=== PATIENT | female | born 2000 | race Caucasian/White ===

== ENCOUNTER 2022-08-02 16:40 | Emergency (ER) | payer MEDICAID, SELFPAY ==
[2022-08-02 16:41] VITALS: BP 118/88; PULSE 118; RESP 14; TEMP 36.6; O2SAT 96; BMI 25.3
[2022-08-02 17:57] LABS: Mucous, Urine 0 SEEN /hpf (<or=2+)
[2022-08-02 18:12] LABS: Absolute Lymphocyte Count 1.84 X10^3/uL (0.83-4.51); Absolute Neutrophil Count 11.1 X10^3/uL (2.0-7.7); Basophil# 0.03 X10^3/uL; Basophil% 0.2 % (0-1); Eosinophil# 0.04 X10^3/uL; Eosinophils% 0.3 % (0-5); Hematocrit 38.3 % (37-47); Hemoglobin 12.7 g/dL (12.0-15.0); Lymphocyte # 1.84 X10^3/ul (0.83-4.51); Mean Corp Hgb Conc 33.2 g/dL (32-36); Mean Corpuscular Hgb 27.8 pg (27.0-32.0); Mean Corpuscular Volume 83.8 fL (81-99); Mean Platelet Vol. 11.8 fl (6.2-12.0); Monocyte# 1.14 X10^3/uL; NRBC Flagged by Analyzer 0 % (0-5); Neutrophil # 11.09 X10^3/uL (2.7-7.7); Neutrophil % 78.1 % (47-70); Platelet Count 148 K/mm3 (150-450); RBC Distribution Width CV 13.3 % (11.6-14.6); RBC Distribution Width SD 40.4 fl (35.1-43.9); Red Blood Count 4.57 M/mm3 (4.2-5.4); White Blood Count 14.2 K/mm3 (4.4-11.0)
[2022-08-02 18:13] LABS: Color, Urine Yellow (Yellow); Glucose, Dipstick Normal (Normal); Ketone-Dipstick 15 mg/dl (Negative); Leukocyte Esterase-Dipstick 100 /ul (Negative); Nitrite-Dipstick Negative (Negative); Occult Blood-Urine 50 /ul (Negative); Protein-Dipstick 30 mg/dl (Negative); Urine Clarity Sl. Cloudy (Clear); Urine Urobilinogen 1 mg/dl (Normal)
[2022-08-02 18:18] LABS: Urine Bilirubin Dipstick 1 mg/dL (Negative)
[2022-08-02 18:19] LABS: Squamous Epithelial Cells - UA 5-10 SEEN /hpf (5-10)
[2022-08-02 18:20] LABS: Bacteria 1+ /hpf (None Seen); Red Blood Cells-Urine 0-5 SEEN /hpf (0-5); White Blood Cells 10-25 SEEN /hpf (0-5)
[2022-08-02 18:22] LABS: Internal QC Validated? YES +Cl - CLEAR BKGD; Pregnancy, Serum, hCG Quali. NEGATIVE Negative
[2022-08-02 18:25] LABS: Anion Gap 7 (5-15); BUN 16 mg/dL (7-18); BUN/Creat Ratio 16.3 RATIO (10-20); Calcium,Total 9.8 mg/dL (8.5-10.1); Chloride 104 mmol/L (98-107); Creatinine, Serum 0.98 mg/dL (0.55-1.02); EST Glomerular Filtration Rate 74 mL/min (>60); Est Glom Filt Rate - Afr Amer 89 mL/min (>60); Glucose 108 mg/dL (74-106); Potassium 3.6 mmol/L (3.5-5.1); Sodium Level 139 mmol/L (136-145)
--- NOTE | 2022-08-02 18:51 | US_ITS ---
EXAM: US PELVIS TRANSVAGINAL CLINICAL INDICATION: right adnexal pain, H/O ovarian cysts TECHNIQUE: Transvaginal pelvic ultrasound was performed with grayscale and color Doppler imaging. Transvaginal imaging was used for better evaluation of the endometrium and adnexa. This report was created using [employer] report MOGL technology. COMPARISON: None. FINDINGS: UTERUS/CERVIX: The uterus is normal in size and echogenicity measuring 8.3 x 3 x 6.[address] Visualized endometrium is normal measuring 2 mm. There is no uterine mass. RIGHT OVARY: Right ovary measures 3.3 x 1.8 x 2.7 cm. Dominant follicle measures 1.3 cm, within normal limits. Blood flow is present in the right ovary. LEFT OVARY: Left ovary is normal in size and echogenicity measuring 3.8 x 1.5 x 2.4 cm. No mass or dominant cyst. Blood flow is present in the left ovary. FREE FLUID: None. US/Transvaginal Non- IMPRESSION: 1. No acute findings. 2. IUD in [address]. Electronically Signed: Sisi Perales MD at 20:00 EST Reading Location ID and State: [id number] / Tel , Service support ,
--- NOTE | 2022-08-02 18:53 | EDS_ITS ---
HPI History of Present Illness Chief Complaint: Abd Pain Informant: patient Onset/Context/Timing Onset: Days Context: Gradual Onset Timing: Waxes and wanes Current Severity: Moderate Maximum Severity: Moderate Narrative Narrative: Patient presents secondary to fever with abdominal pain and now sore throat. Patient states that yesterday had a fever up to 103. She has been noticing some lower abdominal pain in the suprapubic and right lower quadrant area. She has already had an appendectomy. She does have an IUD in place, but was concerned about possible ectopic as she had a family member who got with the same IUD. She also has a history of ovarian cysts and has required surgery for these in the past. Today she noted a sore throat with enlarged tonsils. She has had no congestion, cough, shortness of breath. [facility] Medical History (Updated 08/02/22 @ 20:[address] Lisandra Burris MD) Ovarian cyst Home Medications cephalexin 500 mg capsule 500 mg PO Q12 #20 CAPSULES 08/02/22 [Rx Last Taken Unknown] citalopram 20 mg tablet 20 mg PO DAILY 08/02/22 [History Last Taken Unknown] Allergy/AdvReac Type Severity Reaction Status Date / Time dicyclomine [From Bentyl] Allergy Hives Verified 08/02/22 16:44 raspberry Allergy Swelling Verified 08/02/22 16:44 shellfish derived Allergy Swelling Verified 08/02/22 16:44 Surgical History H/O ovarian cystectomy Hx of appendectomy Social History Smoking Status: Light Smoker (<10/day) ROS ROS ED Constitutional Constitutional ED: Reports fever(s); Denies chills Eyes Eyes: Denies change in vision or discharge from eye(s) ENT ENT ED: Reports sore throat; Denies discharge from eye(s) or rhinorrhea Cardiovascular Cardiovascular: Denies chest pain or palpitations Respiratory/Chest Respiratory/Chest: Denies cough or dyspnea Gastrointestinal Gastrointestinal: Reports abdominal pain; Denies diarrhea, nausea or vomiting Genitourinary Genitourinary ED: Reports dysuria and urinary frequency; Denies difficulty urinating Musculoskeletal Musculoskeletal: Denies back pain or extremity pain Integumentary Denies Abrasions or rash Neurologic Neurologic: Denies headache(s) or weakness Psychiatric Psychiatric: Denies anxiety or depression Allergic/Immunologic Allergic/Immunologic ED: Denies lip swelling or urticaria EXAM Physical Exam Const Vital Signs: 08/02/22 16:41 Temperature 97.8 F Temperature Source Temporal Pulse Rate 118 H Respiratory Rate 14 Blood Pressure 118/88 H Blood Pressure Mean 98 Pulse Ox 96 Oxygen Delivery Method Room Air Positive well nourished and well developed General Appearance ED: well developed HEENT Reports normocephalic and head/scalp atraumatic HEENT Narrative: 3+ tonsils bilaterally with exudate. Uvula midline. Patient tolerating secretions well and has a strong voice. Eyes PERRL and EOMs intact bilaterally Neck supple Chest Wall inspection of chest normal and palpation of chest normal Resp normal respiratory effort and clear to auscultation bilaterally Cardio regular rate and regular rhythm GI GI Narrative: Suprapubic tenderness to palpation. No guarding or rebound. Palpation: soft Extremity normal to inspection Neuro oriented x3 and no sensory deficits noted Sensorium / Orientation: alert Motor Exam: strength 5/5 throughout Psych mental status grossly normal Skin no rashes or lesions noted MDM MDM MDM Narrative Medical decision making narrative: Lab work and urinalysis initiated from triage. At the time of my exam I added a pelvic ultrasound to evaluate for possible ovarian cyst given her right adnexal pain. Rapid strep was also obtained. Patient was given Toradol and IV fluids. Lab Data Attestation: I reviewed the patient's lab results. Labs: Laboratory Results - last 24 hr 08/02/22 08/02/22 08/02/22 17:05 17:43 17:43 WBC 14.2 H RBC 4.57 Hgb 12.7 Hct 38.3 MCV 83.8 MCH 27.8 MCHC 33.2 RDW Std Deviation 40.4 RDW Coeff of Indigo 13.3 Plt Count 148 L MPV 11.8 Immature Gran % (Auto) 0.400 Neut % (Auto) 78.1 H Lymph % (Auto) 13.0 L Luce % (Auto) 8.0 Eos % (Auto) 0.3 Baso % (Auto) 0.2 Absolute Neuts (auto) 11.1 H Absolute Lymphs (auto) 1.84 Nucleated RBC % 0 Sodium 139 Potassium 3.6 Chloride 104 Carbon Dioxide 28.0 Anion Gap 7 BUN 16 Creatinine 0.98 Estim Creat Clear Calc 66.80 Est GFR (MDRD) Af Amer 89 Est GFR (MDRD) Non-Af 74 BUN/Creatinine Ratio 16.3 Glucose 108 H Calcium 9.8 Serum , Qual Urine Color Yellow Urine Clarity Sl. Cloudy Urine pH 5.0 Ur Specific [place] 1.020 Urine Protein 30 H Urine Glucose (UA) Normal Urine Ketones 15 H Urine Occult Blood 50 H Urine Nitrite Negative Urine Bilirubin 1 H Urine Urobilinogen 1 H Ur Leukocyte Esterase 100 H Urine RBC 0-5 SEEN Urine WBC 10-25 SEEN Ur Squamous Epith Cells 5-10 SEEN Urine Bacteria 1+ Urine Mucus 0 SEEN 08/02/22 17:43 WBC RBC Hgb Hct MCV MCH MCHC RDW Std Deviation RDW Coeff of [place]igo Plt Count MPV Immature Gran % (Auto) Neut % (Auto) Lymph % (Auto) Luce % (Auto) Eos % (Auto) Baso % (Auto) Absolute Neuts (auto) Absolute Lymphs (auto) Nucleated RBC % Sodium Potassium Chloride Carbon Dioxide Anion Gap BUN Creatinine Estim Creat Clear Calc Est GFR (MDRD) Af Amer Est GFR (MDRD) Non-Af BUN/Creatinine Ratio Glucose Calcium Serum , Qual NEGATIVE Urine Color Urine Clarity Urine pH Ur Specific [place] Urine Protein Urine Glucose (UA) Urine Ketones Urine Occult Blood Urine Nitrite Urine Bilirubin Urine Urobilinogen Ur Leukocyte Esterase Urine RBC Urine WBC Ur Squamous Epith Cells Urine Bacteria Urine Mucus Radiography Diagnostic Testing: Clinical Impression(s) from Imaging Studies Transvaginal US 08/02/22 18:51 IMPRESSION: 1. No acute findings. 2. IUD in place. Electronically Signed: Sisi Perales MD at 20:00 EST Reading Location ID and State: [id number] / Tel , Service support , Treatment and Re-Evaluation :: CBC reveals a white count of 14.2 with 78% neutrophils. Chemistries unremarkable. Urinalysis reveals 10-25 white blood cells with 1+ bacteria, however 5-10 epithelial cells are also noted. Negative nitrites. test is negative. Strep swab returns positive for strep A. Pelvic ultrasound reveals normal bilateral ovaries with good blood flow. No ovarian cyst noted at this time. Test results discussed with the patient. Given that she is having suprapubic pain and dysuria we will treat her urine as well as her strep throat. I will treat her with Keflex twice a day for 10 days. I did not send a urine culture as there are epithelial cells in her sample and I do not feel we would get a clean culture. Discharge Plan Triage Chief Complaint: Abd Pain ED Provider: Lisandra Burris Dx/Rx/DC Orders Clinical Impression: Strep pharyngitis, UTI (urinary tract infection) Instructions: ED Pharyngitis, Strep (Confirmed), ED Cystitis Female Adult Prescriptions: New cephalexin 500 mg capsule 500 mg PO Q12 Qty: 20 0RF No Action citalopram 20 mg tablet 20 mg PO DAILY Primary Care Provider: Lisandra Brower Referrals: Lisandra Brower DO [Primary Care Provider] - 1-2 Weeks Disposition Disposition: Home, Self Care
[2022-08-02] MEDS: Ketorolac 30 MG/ML Syringe IV (18:59)
[2022-08-02] MEDS: 0.9% Normal Saline 1,000 ML 1000 ML IV (18:59)
[2022-08-02] MEDS: Cephalexin 250 MG Capsule 500 MG PO (20:40)
[2022-08-02 20:42] VITALS: BP 112/78; PULSE 74; RESP 16; O2SAT 98
== END 2022-08-02 20:44 | disposition home or self-care (01) ==
PROVIDERS: Emergency Provider Emergency Medicine; PCP Family Medicine; Visit Provider Emergency Medicine
DX: J02.0 Streptococcal pharyngitis (principal); N39.0 Urinary tract infection, site not specified; F17.200 Nicotine dependence, unspecified, uncomplicated; Z79.899 Other long term (current) drug therapy
CPT/HCPCS: 76830; 80048; 81001; 84703; 85025; 87880; 93976; 96361; 96374; 99283; J7030; A4216

== ENCOUNTER 2022-08-17 16:35 | Emergency (ER) | payer MEDICAID, SELFPAY ==
[2022-08-17 16:36] VITALS: BP 124/77; PULSE 95; RESP 18; TEMP 36.3; O2SAT 99
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
[2022-08-17 17:54] VITALS: BMI 25.7
[2022-08-17 17:57] VITALS: BP 109/82; BP 115/84; PULSE 70; PULSE 75
[2022-08-17 18:03] VITALS: BP 117/90; PULSE 74; O2SAT 100
[2022-08-17 18:17] LABS: Absolute Lymphocyte Count 2.13 X10^3/uL (0.83-4.51); Basophil# 0.03 X10^3/uL; Basophil% 0.4 % (0-1); Eosinophil# 0.16 X10^3/uL; Eosinophils% 2.3 % (0-5); Hematocrit 38.4 % (37-47); Hemoglobin 12.3 g/dL (12.0-15.0); Lymphocyte # 2.13 X10^3/ul (0.83-4.51); Lymphocyte % 30.9 % (19-41); Mean Corpuscular Hgb 27.3 pg (27.0-32.0); Mean Corpuscular Volume 85.3 fL (81-99); Monocyte# 0.56 X10^3/uL; Monocyte% 8.1 % (0-10); NRBC Flagged by Analyzer 0 % (0-5); Neutrophil # 3.99 X10^3/uL (2.7-7.7); Platelet Count 239 K/mm3 (150-450); RBC Distribution Width CV 13.2 % (11.6-14.6); RBC Distribution Width SD 41.3 fl (35.1-43.9); White Blood Count 6.9 K/mm3 (4.4-11.0)
[2022-08-17 18:29] LABS: Anion Gap 5 (5-15); BUN 18 mg/dL (7-18); BUN/Creat Ratio 22.8 RATIO (10-20); Calcium,Total 9.4 mg/dL (8.5-10.1); Chloride 105 mmol/L (98-107); Creatinine, Serum 0.79 mg/dL (0.55-1.02); EST Glomerular Filtration Rate 95 mL/min (>60); Est Glom Filt Rate - Afr Amer 115 mL/min (>60); Estimated Creatinine Clearance 82.86 ml/min; Glucose 95 mg/dL (74-106); Potassium 4.1 mmol/L (3.5-5.1); Sodium Level 138 mmol/L (136-145)
[2022-08-17] MEDS: 0.9% Normal Saline 1,000 ML 150 ML IV (18:42)
[2022-08-17] MEDS: LORazepam 2 MG/ML Syringe 1 MG IV (18:42)
[2022-08-17] MEDS: 0.9% Normal Saline 1,000 ML 1000 ML IV (18:42)
[2022-08-17 18:46] LABS: Color, Urine Yellow (Yellow); Glucose, Dipstick Normal (Normal); Ketone-Dipstick Negative (Negative); Leukocyte Esterase-Dipstick 100 /ul (Negative); Mucous, Urine 0 SEEN /hpf (<or=2+); Nitrite-Dipstick Negative (Negative); Occult Blood-Urine Negative /ul (Negative); Protein-Dipstick 15 mg/dl (Negative); Red Blood Cells-Urine 0 SEEN /hpf (0-5); Urine Bilirubin Dipstick Negative (Negative); Urine Clarity Sl. Cloudy (Clear); Urine Urobilinogen Normal (Normal)
[2022-08-17 18:47] LABS: Internal QC Validated? YES +Cl - CLEAR BKGD; Pregnancy, Serum, hCG Quali. NEGATIVE Negative
[2022-08-17 18:49] LABS: Bacteria 1+ /hpf (None Seen); Squamous Epithelial Cells - UA 0-5 SEEN /hpf (5-10); White Blood Cells 0-5 SEEN /hpf (0-5)
[2022-08-17 20:01] VITALS: BP 110/68; O2SAT 99
== END 2022-08-17 21:21 | disposition home or self-care (01) ==
PROVIDERS: Emergency Provider Emergency Medicine; PCP Family Medicine; Visit Provider Emergency Medicine
DX: R55 Syncope and collapse (principal); F41.9 Anxiety disorder, unspecified; F17.200 Nicotine dependence, unspecified, uncomplicated; Z79.899 Other long term (current) drug therapy
CPT/HCPCS: 80048; 81001; 84703; 85025; 93005; 96361; 96374; 99283; J7030; A4216

== ENCOUNTER 2023-09-22 19:11 | Emergency (ER) | payer MEDICAID, SELFPAY ==
[2023-09-22 19:13] VITALS: BP 121/80; PULSE 93; RESP 18; TEMP 36.1; O2SAT 98; BMI 29.5
[2023-09-22 19:37] LABS: Red Blood Cells-Urine 0 SEEN /hpf (0-5)
[2023-09-22 19:39] LABS: Color, Urine Yellow (Yellow); Glucose, Dipstick Normal (Normal); Ketone-Dipstick Negative (Negative); Leukocyte Esterase-Dipstick 25 /ul (Negative); Nitrite-Dipstick Negative (Negative); Occult Blood-Urine Negative /ul (Negative); Protein-Dipstick Negative (Negative); Urine Bilirubin Dipstick Negative (Negative); Urine Clarity Sl. Cloudy (Clear); Urine Urobilinogen Normal (Normal)
--- NOTE | 2023-09-22 19:39 | US_ITS ---
EXAM: US , TRANSVAGINAL CLINICAL INDICATION: bleeding, cramping TECHNIQUE: Real-time transvaginal obstetrical ultrasound of the maternal pelvis and a first trimester with image documentation. Transvaginal imaging was used for better evaluation of the fetus and adnexa. COMPARISON: No relevant prior studies available. FINDINGS: GESTATION: There is an intrauterine gestational sac with a mean sac diameter of 1.8 cm age of 6 weeks 5 days. There is a pole crown-rump length of 9 mm age 7 weeks 0 days. heart rate is 126 bpm. PLACENTA/AMNIOTIC FLUID: There is a 9 x 6 mm hypoechoic area adjacent to gestational sac which may represent a subchorionic hemorrhage. UTERUS/CERVIX: The uterus measures 8.2 x 4.9 x 6.5 cm. No myometrial mass. OVARIES: The left ovary measures 4.3 x 2.2 x 3.1 cm. There is a 2.2 x 2.4 x 2.4 cm complex cyst in the left ovary. The right ovary measures 3.3 x 1.1 x 1.9 cm. FREE FLUID: No free fluid. US/Transvaginal w/Preg US IMPRESSION: Intrauterine gestation with an average ultrasound age of 6 weeks 6 days and ultrasound estimated due date of 05/11/2024. heart rate is 126 bpm. There is a hypoechoic area adjacent to gestational sac which may represent a subchorionic hemorrhage. Electronically Signed: Balta Castro MD at 21:26 EDT ,
--- NOTE | 2023-09-22 19:40 | ED.VIS.FEGU ---
HPI HPI - Female History of Present Illness Chief Complaint: Vag Bld, Preg Informant: patient Narrative Narrative: Patient presents secondary to abdominal cramping and bleeding during early . Patient is approximately 6 and half weeks . She is scheduled for follow-up next Tuesday for an ultrasound. She is G12, P4, AB 7. She believes she is blood type A-positive. Patient states that she had some abdominal cramping that woke her this morning but she thought she just had a bowel movement. After doing so she did feel somewhat better. At work she started cramping again and when she went to the bathroom she noted a nickel sized blood clot when she urinated. This afternoon she had increased cramping. [facility] Medical History Ovarian cyst Lindsay disease Home Medications cephalexin 500 mg capsule 500 mg PO Q12 #20 CAPSULES 08/02/22 [Rx Last Taken Unknown] citalopram 20 mg tablet 20 mg PO DAILY 08/02/22 [History Last Taken Unknown] elagolix 200 mg tablet (Orilissa) 200 mg PO BID 08/17/22 [History Last Taken Unknown] lorazepam 1 mg tablet (Ativan) 1 mg PO TID PRN anxiety #10 tabs 08/17/22 [Rx Last Taken Unknown] Allergy/AdvReac Type Severity Reaction Status Date / Time amoxicillin Allergy Hives Verified 09/22/23 19:12 dicyclomine [From Bentyl] Allergy Hives Verified 09/22/23 19:12 raspberry Allergy Swelling Verified 09/22/23 19:12 shellfish derived Allergy Swelling Verified 09/22/23 19:12 Surgical History H/O ovarian cystectomy Hx of appendectomy Social History (Updated 09/22/23 @ 21:18 by Isatu You) household members: family Smoking Status: Light Smoker (<10/day) ROS ROS ED Constitutional Constitutional ED: Denies chills or fever(s) Eyes Eyes: Denies change in vision ENT ENT ED: Denies rhinorrhea or sore throat Cardiovascular Cardiovascular: Denies chest pain or palpitations Respiratory/Chest Respiratory/Chest: Denies cough or dyspnea Gastrointestinal Gastrointestinal: Reports abdominal pain; Denies nausea or vomiting Genitourinary Genitourinary ED: Denies dysuria Musculoskeletal Musculoskeletal: Denies back pain or extremity pain Integumentary Denies Abrasions or rash Neurologic Neurologic: Denies headache(s) or weakness Psychiatric Psychiatric: Denies anxiety or depression Allergic/Immunologic Allergic/Immunologic ED: Denies lip swelling or urticaria EXAM Physical Exam Const Vital Signs: 09/22/23 19:13 09/22/23 21:12 Temperature 96.9 F L Temperature Source Temporal Pulse Rate 93 90 Respiratory Rate 18 14 Blood Pressure 121/80 H 116/74 Blood Pressure Mean 93 88 Pulse Ox 98 100 Oxygen Delivery Method Room Air Room Air Positive well nourished and well developed General Appearance ED: well developed HEENT Reports moist mucous membranes Eyes EOMs intact bilaterally Chest Wall inspection of chest normal and palpation of chest normal Resp normal respiratory effort and clear to auscultation bilaterally Cardio regular rate and regular rhythm GI soft to palpation and non-tender Extremity normal to inspection Neuro oriented x3 and no sensory deficits noted Motor Exam: strength 5/5 throughout Psych mental status grossly normal Skin no rashes or lesions noted MDM MDM MDM Narrative Medical decision making narrative: I reviewed patient's prior lab work here but cannot verify blood type. This will be drawn. Quant along with CBC and BMP will also be obtained to evaluate for anemia. Pelvic ultrasound will be performed to evaluate for intrauterine . History & Record Review Discussion w/independent historian: Patient Lab Data Attestation: I reviewed the patient's lab results. Labs: Laboratory Results - last 24 hr 09/22/23 09/22/23 19:20 19:51 WBC 7.5 RBC 3.71 L Hgb 10.1 L Hct 31.0 L MCV 83.6 MCH 27.2 MCHC 32.6 RDW Std Deviation 38.4 RDW Coeff of Indigo 12.6 Plt Count 188 MPV 10.8 Immature Gran % (Auto) 0.300 Neut % (Auto) 57.9 Lymph % (Auto) 31.4 [place] % (Auto) 8.0 Eos % (Auto) 2.1 Baso % (Auto) 0.3 Absolute Neuts (auto) 4.3 Absolute Lymphs (auto) 2.35 Nucleated RBC % 0 Sodium 138 Potassium 3.7 Chloride 106 Carbon Dioxide 27.0 Anion Gap 5 BUN 13 Creatinine 0.86 Estim Creat Clear Calc 90.04 Est GFR (MDRD) Af Amer 102 Est GFR (MDRD) Non-Af 85 BUN/Creatinine Ratio 15.0 Glucose 97 Calcium 9.1 HCG, Quant [id number] H Urine Color Yellow Urine Clarity Sl. Cloudy Urine pH 6.0 Ur Specific [place] 1.020 Urine Protein Negative Urine Glucose (UA) Normal Urine Ketones Negative Urine Occult Blood Negative Urine Nitrite Negative Urine Bilirubin Negative Urine Urobilinogen Normal Ur Leukocyte Esterase 25 H Urine RBC 0 SEEN Urine WBC 0-5 SEEN Ur Squamous Epith Cells 5-10 SEEN Urine Bacteria 2+ Hyaline Casts 0 SEEN Urine Mucus RARE Blood Type A POSITIVE Radiography Diagnostic Testing: Clinical Impression(s) from Imaging Studies Obstetrics Ultrasound 09/22/23 19:39 IMPRESSION: Intrauterine gestation with an average ultrasound age of 6 weeks 6 days and ultrasound estimated due date of 05/11/2024. heart rate is 126 bpm. There is a hypoechoic area adjacent to gestational sac which may represent a subchorionic hemorrhage. Electronically Signed: Balta Castro MD at 21:26 EDT , Treatment and Re-Evaluation Narrative: CBC was normal white count 7.5 with a hemoglobin of 10.1. Chemistry studies unremarkable [place] [id number]. Urinalysis reveals 2+ bacteria but 5-10 epithelial cells with 0-5 white cells and no nitrites. This is all from contamination. Blood type is confirmed at a positive. Pelvic ultrasound reveals an intrauterine gestation with ultrasound age of 6 weeks and 6 days. heart rate is 126. There is a hypoechoic area adjacent to the gestational sac which may represent a subchorionic hemorrhage. Patient will be advised to follow pelvic rest. She will follow-up with her [facility] next Tuesday as scheduled. Return instructions provided. Discharge Plan Triage Chief Complaint: Vag Bld, Preg ED Provider: Lisandra Burris Dx/Rx/DC Orders Clinical Impression: Miscarriage, threatened, early Instructions: Bleeding During Early Prescriptions: No Action citalopram 20 mg tablet 20 mg PO DAILY cephalexin 500 mg capsule 500 mg PO Q12 Qty: 20 0RF Orilissa 200 mg tablet 200 mg PO BID lorazepam [Ativan] 1 mg tablet 1 mg PO TID PRN (Reason: anxiety) Qty: 10 0RF Primary Care Provider: Lisandra Brower Referrals: Lisandra Brower DO [Primary Care Provider] - Activity Restrictions/Additional Instructions: Follow-up with your [facility] on Tuesday as scheduled. Disposition Disposition: Home, Self Care
[2023-09-22 19:47] LABS: Hyaline Cast 0 SEEN /lpf (0-5); Mucous, Urine RARE /hpf (<or=2+)
[2023-09-22 19:48] LABS: Bacteria 2+ /hpf (None Seen); Squamous Epithelial Cells - UA 5-10 SEEN /hpf (5-10); White Blood Cells 0-5 SEEN /hpf (0-5)
[2023-09-22 19:59] LABS: Absolute Lymphocyte Count 2.35 X10^3/uL (0.83-4.51); Absolute Neutrophil Count 4.3 X10^3/uL (2.0-7.7); Basophil# 0.02 X10^3/uL; Basophil% 0.3 % (0-1); Eosinophil# 0.16 X10^3/uL; Eosinophils% 2.1 % (0-5); Hemoglobin 10.1 g/dL (12.0-15.0); Lymphocyte # 2.35 X10^3/ul (0.83-4.51); Lymphocyte % 31.4 % (19-41); Mean Corp Hgb Conc 32.6 g/dL (32-36); Mean Corpuscular Hgb 27.2 pg (27.0-32.0); Mean Corpuscular Volume 83.6 fL (81-99); Mean Platelet Vol. 10.8 fl (6.2-12.0); NRBC Flagged by Analyzer 0 % (0-5); Neutrophil # 4.34 X10^3/uL (2.7-7.7); Neutrophil % 57.9 % (47-70); Platelet Count 188 K/mm3 (150-450); RBC Distribution Width CV 12.6 % (11.6-14.6); RBC Distribution Width SD 38.4 fl (35.1-43.9); Red Blood Count 3.71 M/mm3 (4.2-5.4); White Blood Count 7.5 K/mm3 (4.4-11.0)
[2023-09-22 20:12] LABS: Anion Gap 5 (5-15); BUN 13 mg/dL (7-18); Calcium,Total 9.1 mg/dL (8.5-10.1); Chloride 106 mmol/L (98-107); Creatinine, Serum 0.86 mg/dL (0.55-1.02); EST Glomerular Filtration Rate 85 mL/min (>60); Est Glom Filt Rate - Afr Amer 102 mL/min (>60); Estimated Creatinine Clearance 90.04 ml/min; Glucose 97 mg/dL (74-106); Potassium 3.7 mmol/L (3.5-5.1); Sodium Level 138 mmol/L (136-145)
[2023-09-22 20:36] LABS: hCG Titer Quant., Serum 32536 mIU/mL (1-3)
[2023-09-22 21:12] VITALS: BP 116/74; PULSE 90; RESP 14; O2SAT 100
[2023-09-22 22:05] VITALS: BP 110/74; PULSE 72; RESP 12; TEMP 36.1; O2SAT 100
== END 2023-09-22 22:08 | disposition home or self-care (01) ==
PROVIDERS: Emergency Provider Emergency Medicine; PCP Family Medicine; Visit Provider Emergency Medicine
DX: O20.0 Threatened abortion (principal); O99.331 Smoking (tobacco) complicating pregnancy, first trimester; F17.200 Nicotine dependence, unspecified, uncomplicated; Z3A.01 Less than 8 weeks gestation of pregnancy
CPT/HCPCS: 76817; 80048; 81001; 84702; 85025; 86900; 86901; 99282; A4216

== ENCOUNTER 2023-09-26 22:18 | Emergency (ER) | payer MEDICAID, SELFPAY ==
[2023-09-26 22:18] VITALS: BP 158/100; PULSE 94; RESP 18; TEMP 36.2; O2SAT 98; BMI 29.2
--- NOTE | 2023-09-26 22:24 | EX.ED.DYSGE1 ---
HPI History of Present Illness Chief Complaint: Ear Problem Informant: patient Narrative Narrative: 23[place]year-old [place] and she felt a bug or insect crawling on her face, she swiped it and it went into her ear canal. She states it was immediately very uncomfortable she can feel a crawling in her ear. She flushed it with water and then some peroxide but did not feel like she got it out, and has persistent pain in the ear she can hear okay. Ear was not bothering her prior to this. [facility] Medical History Ovarian cyst Lindsay disease Home Medications cephalexin 500 mg capsule 500 mg PO Q12 #20 CAPSULES 08/02/22 [Rx Last Taken Unknown] citalopram 20 mg tablet 20 mg PO DAILY 08/02/22 [History Last Taken Unknown] elagolix 200 mg tablet (Orilissa) 200 mg PO BID 08/17/22 [History Last Taken Unknown] lorazepam 1 mg tablet (Ativan) 1 mg PO TID PRN anxiety #10 tabs 08/17/22 [Rx Last Taken Unknown] [id number] 3.5 mg-10,000 unit/mL-1 % ear drops,susp 4 drp EACH EAR TID 7 days #10 mL 09/26/23 [Rx Last Taken Unknown] Allergy/AdvReac Type Severity Reaction Status Date / Time amoxicillin Allergy Hives Verified 09/26/23 22:19 dicyclomine [From Bentyl] Allergy Hives Verified 09/26/23 22:19 raspberry Allergy Swelling Verified 09/26/23 22:19 shellfish derived Allergy Swelling Verified 09/26/23 22:19 Surgical History H/O ovarian cystectomy Hx of appendectomy Social History household members: family Smoking Status: Light Smoker (<10/day) ROS ROS ED Constitutional Constitutional ED: Denies fever(s) ENT ENT ED: Reports ear pain right; Denies rhinorrhea or sore throat Integumentary Denies rash EXAM Physical Exam Const Vital Signs: 09/26/23 22:18 Temperature 97.1 F L Temperature Source Oral Pulse Rate 94 Respiratory Rate 18 Blood Pressure 158/100 H Blood Pressure Mean 119 Pulse Ox 98 Oxygen Delivery Method Room Air Positive well nourished and well developed General Appearance ED: well developed and NAD HEENT Reports moist mucous membranes HEENT Narrative: Left external ear, EAC, and TM-normal Right external ear normal. EAC erythematous and mildly tender, mostly deep within the canal near the TM, which has slight erythematous injection but is otherwise normal. Normal light reflex. No perforation, no discharge. No edema of the EAC. No foreign body. Negative for trauma Eyes PERRL and EOMs intact bilaterally Neck supple Neuro oriented x3, CN's II-XII intact bilaterally and no sensory deficits noted Motor Exam: strength 5/5 throughout Psych mental status grossly normal Skin no rashes or lesions noted, no wounds and skin turgor normal MDM MDM MDM Narrative Medical decision making narrative: The patient's right ear does not have any foreign body right now. There are signs of otitis externa, it is likely mechanical inflammation of the ear canal, but it is quite erythematous, there is no bleeding, and I am not able to rule out the possibility of infection so I am prescribing her antibiotic drops suspension to use for the discomfort. Discharge Plan Triage Chief Complaint: Ear Problem ED Provider: Adair Alvarez Dx/Rx/DC Orders Clinical Impression: Foreign body sensation in right ear canal, External otitis of right ear Instructions: ED External Ear Infection (Adult) Prescriptions: New [id number] 3.5-10,000-1 mg/mL-unit/mL-% drops,suspension 4 drp EACH EAR TID 7 Days Qty: 10 0RF No Action citalopram 20 mg tablet 20 mg PO DAILY cephalexin 500 mg capsule 500 mg PO Q12 Qty: 20 0RF Orilissa 200 mg tablet 200 mg PO BID lorazepam [Ativan] 1 mg tablet 1 mg PO TID PRN (Reason: anxiety) Qty: 10 0RF Primary Care Provider: Lisandra Brower Referrals: Lisandra Brower DO [Primary Care Provider] - 1 Week if not improving Disposition Disposition: Home, Self Care
[2023-09-26 22:37] VITALS: BP 140/101; PULSE 80; RESP 16; TEMP 36.9; O2SAT 99
== END 2023-09-26 22:38 | disposition home or self-care (01) ==
LOC: ED 22:34
PROVIDERS: Emergency Provider Emergency Medicine; PCP Family Medicine; Visit Provider Emergency Medicine
DX: T16.1XXA Foreign body in right ear, initial encounter (principal); H60.91 Unspecified otitis externa, right ear; F17.200 Nicotine dependence, unspecified, uncomplicated; X58.XXXA Exposure to other specified factors, initial encounter
CPT/HCPCS: 99282

== ENCOUNTER → 2023-11-14 | Emergency (ER) | payer MEDICAID, SELFPAY ==
[2023-11-14 14:13] VITALS: BP 109/72; PULSE 78; RESP 18; TEMP 36.3; O2SAT 98; BMI 28.5
--- NOTE | 2023-11-14 14:16 | EKG12_ITS ---
Test Reason : SYNCOPE Blood Pressure : / mmHG Vent. Rate : 080 BPM Atrial Rate : 080 BPM P-R Int : 130 ms QRS Dur : 084 ms QT Int : 370 ms P-R-T Axes : 023 056 002 degrees QTc Int : 426 ms Normal sinus rhythm Normal ECG Confirmed by BEBO ORTEZ, FLAVIA ([id number]), primer expeditor and drier MELISSA AGUILAR ([id number]) on 11/15/2023 11:26:44 AM Referred By: Confirmed By:FLAVIA LAGUNAS MD
[2023-11-14 14:40] VITALS: O2SAT 96
[2023-11-14 14:57] VITALS: BP 103/73; BP 106/70; PULSE 114; PULSE 76; PULSE 88
--- NOTE | 2023-11-14 14:59 | EX.ED.DYSGE1 ---
HPI History of Present Illness Chief Complaint: Syncope Informant: patient Onset/Context/Timing Onset: Today Context: Sudden Onset Timing: Intermittent and Lasts (Approximately 30 minutes) Quality: Lightheaded Location: Generalized Worsened by: Nothing Relieved by: Nothing Narrative Narrative: Patient presents with a syncopal episode that occurred today. Patient states she was walking to the bathroom when she passed out. Patient states she was out for approximately 30 minutes. Patient states she could feel her heart racing prior to passing out. Patient states she has been having some nausea and vomiting earlier today. Patient states that couple days ago she had a temperature of 100.7. Patient states she fell backwards and hit her head and neck. Patient also admits to some back pain. Patient states she has a history of POTS. Patient states she is approximately 14 weeks . Patient denies any abnormal vaginal bleeding or discharge. [facility] Medical History Lindsay disease Ovarian cyst Home Medications ?Medication ?Instructions ?Recorded ?Last Taken ?Type cephalexin 500 mg capsule 500 mg PO Q12 #20 CAPSULES 08/02/22 Unknown Rx citalopram 20 mg tablet 20 mg PO DAILY 08/02/22 Unknown History elagolix 200 mg tablet (Orilissa) 200 mg PO BID 08/17/22 Unknown History lorazepam 1 mg tablet (Ativan) 1 mg PO TID PRN anxiety #10 tabs 08/17/22 Unknown Rx Allergy/AdvReac Type Severity Reaction Status Date / Time amoxicillin Allergy Hives Verified 11/14/23 18:25 dicyclomine (From Bentyl) Allergy Hives Verified 11/14/23 18:25 raspberry Allergy Swelling Verified 11/14/23 18:25 shellfish derived Allergy Swelling Verified 11/14/23 18:25 Surgical History Hx of appendectomy H/O ovarian cystectomy Social History household members: family Smoking Status: Light Smoker (<10/day) ROS ROS ED Constitutional Constitutional ED: Reports fever(s); Denies chills Eyes Eyes: Denies blurry vision or change in vision ENT ENT ED: Denies rhinorrhea or sore throat Cardiovascular Cardiovascular: Reports palpitations; Denies chest pain Respiratory/Chest Respiratory/Chest: Denies cough or dyspnea Gastrointestinal Gastrointestinal: Reports nausea and vomiting Genitourinary Genitourinary ED: Denies dysuria or hematuria Musculoskeletal Musculoskeletal: Reports back pain and neck pain Integumentary Denies abscess or rash Neurologic Neurologic: Reports headache(s); Denies weakness Allergic/Immunologic Allergic/Immunologic ED: Denies mouth swelling or urticaria EXAM Physical Exam Const Vital Signs: 11/14/23 14:13 11/14/23 14:40 11/14/23 14:47 Temperature 97.4 F L Temperature Source Temporal Pulse Rate 78 Pulse Rate [Lying] Pulse Rate [Sitting (for 1 minute prior to obtaining)] Pulse Rate [Standing (for 1 minute prior to obtaining)] Respiratory Rate 18 Respiratory Effort Normal Non-Labored Respiratory Pattern Normal Blood Pressure 109/72 Blood Pressure [Lying] Blood Pressure [Sitting (for 1 minute prior to obtaining)] Blood Pressure Mean 84 Blood Pressure Mean [Lying] Blood Pressure Mean [Sitting (for 1 minute prior to obtaining)] Pulse Ox 98 96 Oxygen Delivery Method Room Air Room Air 11/14/23 14:57 11/14/23 16:11 11/14/23 18:00 Temperature Temperature Source Pulse Rate 86 86 Pulse Rate [Lying] 76 Pulse Rate [Sitting (for 1 minute prior to obtaining)] 88 Pulse Rate [Standing (for 1 minute prior to obtaining)] 114 H Respiratory Rate 19 H 15 Respiratory Effort Respiratory Pattern Blood Pressure 108/81 H 108/77 Blood Pressure [Lying] 106/70 Blood Pressure [Sitting (for 1 minute prior to obtaining)] 103/73 Blood Pressure Mean 90 87 Blood Pressure Mean [Lying] 82 Blood Pressure Mean [Sitting (for 1 minute prior to obtaining)] 83 Pulse Ox 97 98 Oxygen Delivery Method Room Air Room Air 11/14/23 18:23 Temperature 97.8 F Temperature Source Pulse Rate 80 Pulse Rate [Lying] Pulse Rate [Sitting (for 1 minute prior to obtaining)] Pulse Rate [Standing (for 1 minute prior to obtaining)] Respiratory Rate 16 Respiratory Effort Respiratory Pattern Blood Pressure 106/76 Blood Pressure [Lying] Blood Pressure [Sitting (for 1 minute prior to obtaining)] Blood Pressure Mean 86 Blood Pressure Mean [Lying] Blood Pressure Mean [Sitting (for 1 minute prior to obtaining)] Pulse Ox 98 Oxygen Delivery Method Positive well nourished and well developed General Appearance ED: well developed and NAD HEENT Reports moist mucous membranes Neck supple and no JVD Resp normal respiratory effort and clear to auscultation bilaterally Cardio regular rate and regular rhythm GI non-distended Palpation: soft and tender suprapubic; Negative for guarding or rebound tenderness present Extremity normal to inspection General Extremety ED: Negative for edema or tenderness General Extremity: Negative for edema Neuro oriented x3, CN's II-XII intact bilaterally and no sensory deficits noted Sensorium / Orientation: alert Motor Exam: strength 5/5 throughout Psych mental status grossly normal MDM MDM MDM Narrative Medical decision making narrative: Differential diagnosis includes dehydration, electrolyte abnormality, ectopic , urinary tract infection, cardiac dysrhythmia, cardiac ischemia, vasovagal syncope, and anxiety. EKG will be obtained to assess for cardiac dysrhythmia and cardiac ischemia. CBC will be obtained to assess for leukocytosis and anemia. Basic metabolic profile will be obtained to assess for electrolyte abnormality and renal function. Urinalysis will be obtained to assess for urinary tract infection or hematuria. Quantitative hCG will be obtained to assess for . Lab Data Attestation: I reviewed the patient's lab results. Lab results narrative: CBC was reviewed. There is a mild anemia with a hemoglobin of 10.4 and hematocrit 32.2. The remainder was within normal limits. Basic metabolic profile was reviewed and was within normal limits. BGT was reviewed and was normal at 118. Urinalysis was reviewed. There is no evidence of urinary tract infection or hematuria. Labs: Laboratory Results - last 24 hr 11/14/23 11/14/23 11/14/23 14:46 15:05 15:59 WBC 9.9 RBC 3.81 L Hgb 10.4 L Hct 32.2 L MCV 84.5 MCH 27.3 MCHC 32.3 RDW Std Deviation 40.8 RDW Coeff of Indigo 13.2 Plt Count 164 MPV 11.4 Immature Gran % (Auto) 0.300 Neut % (Auto) 79.3 H Lymph % (Auto) 14.6 L [place] % (Auto) 5.0 Eos % (Auto) 0.7 Baso % (Auto) 0.1 Absolute Neuts (auto) 7.8 H Absolute Lymphs (auto) 1.44 Nucleated RBC % 0 Sodium 136 Potassium 3.6 Chloride 105 Carbon Dioxide 25.0 Anion Gap 6 BUN 13 Creatinine 0.68 Estim Creat Clear Calc 112.07 Est GFR (MDRD) Af Amer 134 Est GFR (MDRD) Non-Af 111 BUN/Creatinine Ratio 19.0 Glucose 104 Calcium 9.1 Urine Color Straw Urine Clarity Sl. Cloudy Urine pH 6.5 Ur Specific [place] 1.005 Urine Protein Negative Urine Glucose (UA) Normal Urine Ketones Negative Urine Occult Blood Negative Urine Nitrite Negative Urine Bilirubin Negative Urine Urobilinogen Normal Ur Leukocyte Esterase Negative Urine RBC 0 SEEN Urine WBC 0-5 SEEN Ur Squamous Epith Cells 0-5 SEEN Urine Bacteria 2+ Urine Mucus 0 SEEN POC Glucose 118 H Radiography Diagnostic Testing: Clinical Impression(s) from Imaging Studies Obstetrics Ultrasound 11/14/23 16:58 IMPRESSION: Viable intrauterine gestation approximately 15 weeks gestational age. No significant abnormality Electronically Signed: Finn Desir MD at 17:43 EDT Reading Location ID and State: [facility] / [place] Tel , Service support , Pelvic ultrasound was obtained. There is a viable intrauterine at approximately 15 weeks. There is no acute abnormality noted. This was interpreted by the radiologist was also independently reviewed by myself. EKG Initial EKG: Attestation: I personally reviewed and interpreted this EKG as follows: Interpretation: Sinus Rhythm (80) and No Acute Injury Pattern Comments: EKG was obtained. On my independent interpretation, it showed a normal sinus rhythm with a rate of 80. [place] interval, QRS interval, and QTc intervals were all normal. [place] was normal. There are no acute ST or T wave changes. Prior EKG tracings: available for review Prior: Unchanged (08/17/2022) Treatment and Re-Evaluation :: Patient was given IV fluids. Orthostatic vital signs were obtained. Heart rate did go up with standing. The remaining orthostatic vital signs were within normal limits. Patient was feeling better on reevaluation. Patient was advised of her findings. Patient was instructed to follow-up with her primary care physician and INFORMATION SYSTEMS CONSULTANT in 5 to 7 days. Patient was instructed to return if worse in any way. Patient understood and was agreeable with the plan. All questions were answered. Discharge Plan Triage Chief Complaint: Syncope ED Provider: Shahid Mondragon Dx/Rx/DC Orders Clinical Impression: Syncope and collapse, Second trimester Instructions: ED Fainting, Uncertain Cause Prescriptions: No Action citalopram 20 mg tablet 20 mg PO DAILY cephalexin 500 mg capsule 500 mg PO Q12 Qty: 20 0RF Orilissa 200 mg tablet 200 mg PO BID lorazepam [Ativan] 1 mg tablet 1 mg PO TID PRN (Reason: anxiety) Qty: 10 0RF Primary Care Provider: Lisandra Brower Referrals: Lisandra Brower DO [Primary Care Provider] - 3-5 Days Print Language: Iranian Disposition Disposition: Home, Self Care
[2023-11-14 15:05] LABS: Bedside Glucose 118 mg/dL (74-106)
--- NOTE | 2023-11-14 15:06 | ED.RN ---
RN ENTERED PATIENTS ROOM TO START AN IV AND OBTAIN BLOODWORK WHEN SHE SAW PATIENT SITTING ON THE FLOOR, HEAD SLUMPED OVER AND REYNA, RN REQUESTING HELP TO GET THE PATIENT BACK IN BED. PATIENT SAFELY LIFTED BACK TO BED. IV STARTED.
[2023-11-14] MEDS: 0.9% Normal Saline (1000mL) 1,000 ML 1000 ML IV ×2 (15:07→16:40)
--- NOTE | 2023-11-14 15:10 | ED.RN ---
WHILE STANDING FOR HER ORTHOS PT STATED SHE WAS DIZZY AND THEN SHE STARTED FLUTTERING HER EYES. THIS NURSE INSTRUCTED PT TO STAND UP STRAIGHT, LOOK AT ME AND TAKE SOME DEEP BREATHS. PT FOLLOWED INSTRUCTIONS AND HER HR DID ELEVATE TO 113. PT FLUTTERED HER EYES FOR 15-20 SECS AND SHE THEN LOOKED AT HER FRIEND AND FAINTED. THE FAINT WAS A CONTROLLED SIT WITH HER ARM AND HEAD RESTING ON HER FRIENDS LAP. ANOTHER NURSE CAME INTO THE ROOM SAT THAT TIME AND ASSISTED THIS NURSE IN GETTING THE PT UP. PT DID KEEP HER HEAD DOWN IF SHE WAS STILL UNCONSCIOUS BUT SHE ASSISTED IN THE STAND AND TURNED HERSELF TO SIT AND PUT HER LEGS ONTO THE BED. AT THIS TIME SHE STARTED TO MOVE AROUND AND SLOWLY RESPOND. SIDE RAILS PUT UP AND PHYSICIAN NOTIFIED
[2023-11-14 15:19] LABS: Absolute Lymphocyte Count 1.44 X10^3/uL (0.83-4.51); Absolute Neutrophil Count 7.8 X10^3/uL (2.0-7.7); Basophil# 0.01 X10^3/uL; Basophil% 0.1 % (0-1); Eosinophil# 0.07 X10^3/uL; Eosinophils% 0.7 % (0-5); Hematocrit 32.2 % (37-47); Hemoglobin 10.4 g/dL (12.0-15.0); Lymphocyte # 1.44 X10^3/ul (0.83-4.51); Lymphocyte % 14.6 % (19-41); Mean Corp Hgb Conc 32.3 g/dL (32-36); Mean Corpuscular Hgb 27.3 pg (27.0-32.0); Mean Corpuscular Volume 84.5 fL (81-99); Mean Platelet Vol. 11.4 fl (6.2-12.0); Monocyte# 0.49 X10^3/uL; NRBC Flagged by Analyzer 0 % (0-5); Neutrophil # 7.83 X10^3/uL (2.7-7.7); Neutrophil % 79.3 % (47-70); Platelet Count 164 K/mm3 (150-450); RBC Distribution Width CV 13.2 % (11.6-14.6); RBC Distribution Width SD 40.8 fl (35.1-43.9); Red Blood Count 3.81 M/mm3 (4.2-5.4); White Blood Count 9.9 K/mm3 (4.4-11.0)
[2023-11-14 16:11] VITALS: BP 108/81; PULSE 86; RESP 19; O2SAT 97
[2023-11-14 16:12] LABS: Mucous, Urine 0 SEEN /hpf (<or=2+); Red Blood Cells-Urine 0 SEEN /hpf (0-5)
[2023-11-14 16:13] LABS: Color, Urine Straw (Yellow); Glucose, Dipstick Normal (Normal); Ketone-Dipstick Negative (Negative); Leukocyte Esterase-Dipstick Negative /ul (Negative); Nitrite-Dipstick Negative (Negative); Occult Blood-Urine Negative /ul (Negative); Protein-Dipstick Negative (Negative); Specific Gravity, Urine 1.005 (1.002-1.030); Urine Bilirubin Dipstick Negative (Negative); Urine Clarity Sl. Cloudy (Clear); Urine Urobilinogen Normal (Normal); Urine pH 6.5 (5.0 - 8.0)
[2023-11-14 16:20] LABS: Bacteria 2+ /hpf (None Seen); Squamous Epithelial Cells - UA 0-5 SEEN /hpf (5-10)
[2023-11-14 16:21] LABS: White Blood Cells 0-5 SEEN /hpf (0-5)
--- NOTE | 2023-11-14 16:36 | ED.RN ---
pt ambulated to the bathroom and back without issues
--- NOTE | 2023-11-14 16:58 | US_ITS ---
STUDY: SECOND AND THIRD TRIMESTER OBSTETRICAL ULTRASOUND - LIMITED REASON FOR EXAM: Female, 23 years old Pelvic pain LMP: PRIOR ULTRASOUND: None. TECHNIQUE: Transabdominal TECHNICAL QUALITY: Adequate. FINDINGS: There is a single intrauterine fetus. The fetus is in a cephalic presentation. There is demonstrated cardiac activity with a heart rate of 173 bpm. There is a normal amniotic fluid volume. The largest amniotic fluid pocket measures 4.2 cm.. The placenta is posterior There are Grade 0 placental changes. The cervix measures 3.3 cm in length. No adnexal masses observed BIOMETRY: BPD: 2.91 cm: 15 weeks, 2 days HC: 11.02 cm: 15 weeks, days AC: 9.06 cm: 15 weeks, 2 days FL: 1.2 cm: 13 weeks, 4 days Age by LMP: 14 weeks, 2 days. DEIDRA by LMP: May 12, 2024. age by current US: 14 weeks, 6 days. DEIDRA by current US: May 08, 2024. Estimated weight: 100 grams, +/- 15 grams, 50 percentile. US/OB Limited With Biometrics IMPRESSION: Viable intrauterine gestation approximately 15 weeks gestational age. No significant abnormality Electronically Signed: Finn Desir MD at 17:43 EDT ,
[2023-11-14 17:57] LABS: Anion Gap 6 (5-15); BUN 13 mg/dL (7-18); Calcium,Total 9.1 mg/dL (8.5-10.1); Chloride 105 mmol/L (98-107); Creatinine, Serum 0.68 mg/dL (0.55-1.02); EST Glomerular Filtration Rate 111 mL/min (>60); Est Glom Filt Rate - Afr Amer 134 mL/min (>60); Estimated Creatinine Clearance 112.07 ml/min; Glucose 104 mg/dL (74-106); Potassium 3.6 mmol/L (3.5-5.1); Sodium Level 136 mmol/L (136-145)
[2023-11-14 18:00] VITALS: BP 108/77; PULSE 86; RESP 15; O2SAT 98
[2023-11-14 18:23] VITALS: BP 106/76; PULSE 80; RESP 16; TEMP 36.6; O2SAT 98
[2023-11-14 18:41] LABS: hCG Titer Quant., Serum 39614 mIU/mL (1-3)
== END | disposition home or self-care (01) ==
PROVIDERS: Emergency Provider Emergency Medicine; PCP Family Medicine; Visit Provider Emergency Medicine
DX: O99.891 Other specified diseases and conditions complicating pregnancy (principal); O99.332 Smoking (tobacco) complicating pregnancy, second trimester; R55 Syncope and collapse; F17.200 Nicotine dependence, unspecified, uncomplicated; Z79.899 Other long term (current) drug therapy; Z3A.14 14 weeks gestation of pregnancy
CPT/HCPCS: 76816; 80048; 81001; 82962; 84702; 85025; 93005; 99285; J7030

== ENCOUNTER 2025-05-13 20:14 | Emergency (ER) | payer MEDICAID, SELFPAY ==
[2025-05-13 20:15] VITALS: BP 135/97; PULSE 89; RESP 18; TEMP 37; O2SAT 100; BMI 30.8
[2025-05-13 21:07] LABS: Color, Urine Yellow (Yellow); Glucose, Dipstick Normal (Normal); Ketone-Dipstick Negative (Negative); Leukocyte Esterase-Dipstick Negative /ul (Negative); Nitrite-Dipstick Negative (Negative); Occult Blood-Urine 50 /ul (Negative); Protein-Dipstick Negative (Negative); Specific Gravity, Urine 1.015 (1.002-1.030); Urine Bilirubin Dipstick Negative (Negative)
[2025-05-13 21:13] LABS: Hematocrit 36.1 % (37-47); Hemoglobin 11.5 g/dL (12.0-15.0); Immature Granulocytes Count 0.010 X10^3/uL (0.0-0.0); Mean Corp Hgb Conc 31.9 g/dL (32-36); Mean Corpuscular Volume 84.3 fL (81-99); Mean Platelet Vol. 11.8 fl (6.2-12.0); NRBC Flagged by Analyzer 0 % (0-5); Platelet Count 231 K/mm3 (150-450); RBC Distribution Width CV 13.4 % (11.6-14.6); RBC Distribution Width SD 41.5 fl (35.1-43.9); Red Blood Count 4.28 M/mm3 (4.2-5.4); White Blood Count 8.3 K/mm3 (4.4-11.0)
--- NOTE | 2025-05-13 21:19 | US_ITS ---
PROCEDURE: US PELVIC (NON ) 05/13/2025 REASON FOR EXAM: LEFT LOWER ABDOMINAL PAIN, HISTORY OF OVARIAN CYST TECHNIQUE: Procedure Code: USPEL Modality: US Procedure: PELVIC (NON ) COMPARISON: CT from same day 05/13/2025. FINDINGS: Anteverted uterus appears normal in size and smooth in contour, measuring 8.5 x 5.5 x 3.5 cm. No discrete uterine myoma. No abnormal collection is seen within the uterine cavity. Endometrial stripe appears normal measuring up to 0.3 cm in thickness. Left ovary contains a simple anechoic cyst/dominant follicle measuring up to 2.6 cm. No follow-up indicated. Otherwise bilateral ovaries appear sonographically normal. Right ovary measures 2.7 x 1.6 x 1.5 cm. Left ovary measures 3.9 x 2.6 x 2.5 cm. Blood flow is preserved on color Doppler. No adnexal mass or significant free pelvic fluid is visualized. US/Pelvic (Non ) IMPRESSION: Uterus and adnexae sonographically within normal limits. Small 2.6 cm simple left ovarian cyst/dominant follicle; no follow-up indicated . Reading Location: [id number]
--- NOTE | 2025-05-13 21:19 | EX.ED.DYSGE1 ---
HPI History of Present Illness Chief Complaint: Abd Pain [facility] Medical History Lindsay disease Ovarian cyst Home Medications ?Medication ?Instructions ?Recorded ?Last Taken ?Type elagolix 200 mg tablet (Orilissa) 200 mg PO BID 08/17/22 Unknown History Held on 11/14/23. Instructions: docusate sodium 100 mg capsule 100 mg PO BID 05/13/25 Unknown History drospirenone (contraceptive) 4 mg 1 tab PO DAILY 05/13/25 Unknown History (28) tablet (Slynd) escitalopram oxalate 10 mg tablet 10 mg PO DAILY 05/13/25 Unknown History estradiol 2 mg tablet 2 mg PO DAILY 05/13/25 Unknown History ferrous sulfate 325 mg (65 mg 325 mg PO BID 05/13/25 Unknown History iron) tablet (iron) norgestimate 0.25 mg-ethinyl 1 tab PO DAILY 05/13/25 Unknown History estradiol 0.035 mg tablet (Breathitt-Linyah) vitamins no.148-iron 27 cap PO 05/13/25 Unknown History mg-folate 1 mg-dha 205 mg capsule Allergy/AdvReac Type Severity Reaction Status Date / Time amoxicillin Allergy Hives Verified 05/13/25 20:18 dicyclomine (From Bentyl) Allergy Hives Verified 05/13/25 20:18 raspberry Allergy Swelling Verified 05/13/25 20:18 shellfish derived Allergy Swelling Verified 05/13/25 20:18 Surgical History Hx of appendectomy H/O ovarian cystectomy Social History household members: family Smoking Status: Light Smoker (<10/day) EXAM Physical Exam Const Vital Signs: 05/13/25 20:15 05/13/25 22:00 05/13/25 23:07 Temperature 98.6 F 98 F Temperature Source Temporal Pulse Rate 89 65 67 Respiratory Rate 18 16 16 Blood Pressure 135/97 H 150/94 H 135/88 H Blood Pressure Mean 109 112 103 Pulse Ox 100 100 98 Oxygen Delivery Method Room Air Room Air MDM MDM MDM Narrative Medical decision making narrative: HISTORY OF PRESENT ILLNESS: Chief complaint: Abdominal pain 25-year-old female history of POTS disease and ovarian cyst presents with left-sided abdominal pain. She states has a large cyst in her left ovary. She is scheduled for surgery on December 02. She notes left abdominal pain and vaginal bleeding. She denies vomiting. Denies fever. Notes history of multiple abdominal surgeries including appendectomy and ovarian cystectomy. REVIEW OF SYSTEMS: Pertinent positives: Abdominal pain, vaginal bleeding Pertinent negatives: Fever, dysuria PHYSICAL EXAM: Nursing triage notes reviewed, Vital signs reviewed Constitutional: please see [facility] HENT: MMM Eyes: Pupils equal round and reactive to light, Extraocular muscles intact Neck: No stridor, no JVD, full neck ROM Lungs: Clear to auscultation, No wheezing or rales. No increased work of breathing, no conversational dyspnea, no accessory muscle use, no nasal flaring. No respiratory distress noted Heart: Regular rate and rhythm, No murmurs, No rubs and No gallops, 2+ distal pulses (radial, femoral, posterior tibial) in all extremities Abdomen: Soft, there is no tenderness, rigidity, rebound or guarding, no obvious peritoneal signs, no palpable pulsatile abdominal masses, no auscultated abdominal bruit : No CVAT Extremities: No edema Neuro: No new focal neurological deficits, cranial nerves II through XII intact, 5/5 strength in all present extremities. Intact sensation to light touch in all present extremities, 2+ reflexes bilateral patella tendons. Skin: No rash or lesions noted MEDICAL DECISION MAKING: Chief Complaint: please see HPI External records reviewed: Reviewed OB ultrasound from October 2023. This showed a viable gestation Factors affecting care: As per HPI Social determinants of health: none History obtained from others: none Consults: none [facility] Narrative: The patient was initially hemodynamically stable, afebrile and nontoxic-appearing. Exam with left mid to left lower quadrant TTP. No peritoneal signs. I considered the following differential diagnosis: Ovarian cyst, rupture ovarian cyst, diverticulitis, abdominal perforation, obstruction, nephrolithiasis, pyelonephritis, AAA I obtained a broad lab and imaging work to further determine if the patient was suffering from a life-threatening etiology. Initially treat the patient 500 cc bolus and Tylenol for cessation and pain control ALL IMAGES (IF OBTAINED) HAVE BEEN PERSONALLY REVIEWED AND INTERPRETED BY MYSELF. CBC with no leukocytosis noted mild anemia but no thrombocytopenia Urinalysis shows no evidence of urinary inflammation suggestive of UTI Pelvic ultrasound showed a small left ovarian cyst. No other abnormalities noted CT scan abdomen pelvis with no evidence of nephrolithiasis, signs of pyelonephritis or other acute surgical abdominal pathology Lipase is wnl indicating no pancreatic inflammation. Serum test is negative Urinalysis shows no evidence of urinary inflammation suggestive of UTI Given serum test I treat the patient with IV Toradol for additional pain control. The synthesis of the patient's history, physical exam, labs images suggest no acute life or limb radiology. There was a small left-sided ovarian cyst noted this may be result of her pain. I encouraged NSAIDs and prompt OB follow-up. Strict return precautions were discussed. The patient and/or family, caregivers express understanding. The patient and/or family, caregivers agrees with the plan. Shared decision making: I will have a discussion with the patient and or visitors regarding risk/benefits of further testing or admission. They will be made aware of of the risk/benefits inherent in this decision they will be given the opportunity to voice understanding. Total critical care time today provided was at least 0 minutes. This excludes separately billable procedures. Critical care time (if documented) is secondary to the patient having high probability of clinically significant/life threatening deterioration in the patient's condition which required my urgent intervention. Impression: 1. Acute abdominal pain 2. Left-sided ovarian cyst Dispo: Discharge home This note was generated with [employer] dictation software. It may contain incorrect words, spelling, and punctuation that were not noted in review of the chart prior to signing. Lab Data Labs: Laboratory Results - last 24 hr 05/13/25 05/13/25 20:25 20:56 WBC 8.3 RBC 4.28 Hgb 11.5 L Hct 36.1 L MCV 84.3 MCH 26.9 L MCHC 31.9 L RDW Std Deviation 41.5 RDW Coeff of Indigo 13.4 Plt Count 231 MPV 11.8 Immature Gran % (Auto) 0.100 Neut % (Auto) 62.1 Lymph % (Auto) 28.1 [place] % (Auto) 6.2 Eos % (Auto) 3.0 Baso % (Auto) 0.5 Absolute Neuts (auto) 5.2 Absolute Lymphs (auto) 2.34 Nucleated RBC % 0 Sodium 139 Potassium 3.7 Chloride 105 Carbon Dioxide 23.6 Anion Gap 11 BUN 20 H Creatinine 0.92 Estim Creat Clear Calc 84.47 Est GFR (MDRD) Non-Af 88 BUN/Creatinine Ratio 21.8 H Glucose 145 H Calcium 9.6 Total Bilirubin 0.17 AST 26 ALT 42 H Alkaline Phosphatase 61 Total Protein 7.4 Albumin 4.3 Globulin 3.1 Albumin/Globulin Ratio 1.4 Lipase 34 Serum , Qual NEGATIVE Urine Color Yellow Urine Clarity Clear Urine pH 6.0 Ur Specific [place] 1.015 Urine Protein Negative Urine Glucose (UA) Normal Urine Ketones Negative Urine Occult Blood 50 H Urine Nitrite Negative Urine Bilirubin Negative Urine Urobilinogen Normal Ur Leukocyte Esterase Negative Urine RBC 0-5 SEEN Urine WBC 0-5 SEEN Ur Squamous Epith Cells 0-5 SEEN Urine Bacteria 1+ Hyaline Casts 0-5 SEEN Urine Mucus 1+ Radiography Diagnostic Testing: Clinical Impression(s) from Imaging Studies Pelvis Ultrasound 05/13/25 21:19 IMPRESSION: Uterus and adnexae sonographically within normal limits. Small 2.6 cm simple left ovarian cyst/dominant follicle; no follow-up indicated. Reading Location: [facility] Abdomen/Pelvis CT 05/13/25 21:45 IMPRESSION: 1. No acute findings in the abdomen or pelvis. 2. Mild hepatomegaly measuring 18.5 cm craniocaudally. 3. Small left renal cyst measures 1.2 cm. 4. Colonic stool burden suggesting constipation. Reading Location: [facility] Discharge Plan Triage Chief Complaint: Abd Pain ED Provider: Adam Murphy Dx/Rx/DC Orders Instructions: ED Ovarian Cyst Prescriptions: No Action Orilissa 200 mg tablet 200 mg PO BID norgestimate-ethinyl estradiol [Breathitt-Linyah] 0.25-0.035 mg tablet 1 tab PO DAILY estradiol 2 mg tablet 2 mg PO DAILY escitalopram oxalate 10 mg tablet 10 mg PO DAILY Slynd 4 mg (28) tablet 1 tab PO DAILY ferrous sulfate [iron] 325 mg (65 mg iron) tablet 325 mg PO BID docusate sodium 100 mg capsule 100 mg PO BID [id number] 6-dha 27 mg iron-1 mg -205 mg capsule PO Stand Alone Forms: ED Work / School Excuse Primary Care Provider: Lisandra Brower Referrals: Lara Rolle DO [Med Staff - Active Staff, Obstetrics-Gynecology (OBGYN)] Activity Restrictions/Additional Instructions: Thank you for trusting us with your care today! Your labs images were reassuring. Your pelvic ultrasound showed a left-sided ovarian cyst. Your CT scan was otherwise unremarkable. Your labs are reassuring. Your urinalysis and test were negative for signs of infection or . The cause of your symptoms is unclear but given your unremarkable labs images is unlikely to be life-threatening. Recommend you follow with [facility] at the next available appointment. Please take Tylenol (2 pills, 650 mg), ibuprofen (2 pills, 400 mg) every 6 hours as needed for pain and fever control. Please return to the emergency department if your symptoms change or worsen. Please follow with [facility] for further outpatient evaluation and management. Print Language: Georgian Disposition Disposition: Home, Self Care Discharge Date/Time: 05/13/25 23:12
[2025-05-13 21:22] LABS: Mucous, Urine 1+ /hpf (<or=2+)
[2025-05-13 21:24] LABS: Red Blood Cells-Urine 0-5 SEEN /hpf (0-5); Squamous Epithelial Cells - UA 0-5 SEEN /hpf (5-10)
[2025-05-13] MEDS: 0.9% Normal Saline (500mL Bag) 500 ML 1000 ML IV (21:24)
[2025-05-13 21:26] LABS: Internal QC Validated? YES +Cl - CLEAR BKGD; Pregnancy, Serum, hCG Quali. NEGATIVE Negative
[2025-05-13 21:43] LABS: AST(SGOT) 26 U/L (<=31); Alanine Aminotransfer ALT/SGPT 42 U/L (<=34); Albumin, Serum 4.3 g/dL (3.5-5.0); Alkaline Phosphatase 61 U/L (35-104); Anion Gap 11 (5-15); BUN 20 mg/dL (4-19); BUN/Creat Ratio 21.8 RATIO (10-20); Calcium,Total 9.6 mg/dL (7.6-11.0); Carbon Dioxide 23.6 mmol/L (21.0-32.0); Chloride 105 mmol/L (98-108); Estimated Creatinine Clearance 84.47 ml/min (50-250); Globulin 3.1 g/dL (2.2-4.2); Glucose 145 mg/dL (70-99); Lipase 34 U/L (13-75); Potassium 3.7 mmol/L (3.3-5.1)
--- NOTE | 2025-05-13 21:45 | CT_ITS ---
PROCEDURE: ABDOMEN/PELVIS W IV CONT ONLY 05/13/2025 REASON FOR EXAM: LEFT LOWER QUADRANT ABDOMINAL PAIN TECHNIQUE: Procedure Code: [id number] Modality: CT Procedure: ABDOMEN/PELVIS W IV CONT ONLY Coronal and Sagittal reconstruction series were provided. CONTRAST: 100 cc of Isovue 370 One or more dose reduction techniques were used (e.g., Automated exposure control, adjustment of the mA and/or kV according to patient size, use of iterative reconstruction technique. COMPARISON: Pelvic ultrasound 05/13/2025 FINDINGS: Lung bases: Unremarkable. Liver: Mildly enlarged measuring 18.5 cm craniocaudally. No obvious hepatic mass. Gallbladder: Unremarkable. No biliary ductal dilatation. Spleen: Normal size. Pancreas: Normal size without evidence of mass surrounding inflammation or ductal dilation. Adrenals: Unremarkable. Kidneys: Left kidney upper pole cyst measures 1.2 x 1.1 cm. No renal calculi or hydronephrosis bilaterally. Bladder: Unremarkable. Reproductive Organs: Normal uterine size and contour. Ovaries are unremarkable. Bowel: No bowel obstruction. Moderate colonic stool burden suggesting constipation. No inflammatory changes. Appendix: Prior appendectomy. Lymph nodes: Unremarkable. Vasculature: The abdominal aorta and IVC are normal. Peritoneum / Retroperitoneum: No free fluid or air. Bones: Unremarkable. No acute fractures. CT/Abdomen/Pelvis W IV Cont ONLY IMPRESSION: 1. No acute findings in the abdomen or pelvis. 2. Mild hepatomegaly measuring 18.5 cm craniocaudally. 3. Small left renal cyst measures 1.2 cm. 4. Colonic stool burden suggesting constipation. Reading Location: [facility]
[2025-05-13 22:00] VITALS: BP 150/94; PULSE 65; RESP 16; O2SAT 100
[2025-05-13 23:07] VITALS: BP 135/88; PULSE 67; RESP 16; TEMP 36.6; O2SAT 98
== END 2025-05-13 23:12 | disposition home or self-care (01) ==
PROVIDERS: Emergency Provider Emergency Medicine; PCP Family Medicine; Visit Provider Emergency Medicine
DX: N83.292 Other ovarian cyst, left side (principal); F17.200 Nicotine dependence, unspecified, uncomplicated; Z79.899 Other long term (current) drug therapy
CPT/HCPCS: 74177; 76856; 80053; 81001; 83690; 84703; 85025; 96361; 96374; 99284; Q9967; A4216